=== PATIENT | female | born 1985 | race Caucasian/White ===

== ENCOUNTER 2023-04-27 14:29 | Outpatient (REF) | payer OTHER, SELFPAY ==
[2023-04-27 21:48] LABS: Abs Immature Grans 0.01 10^3/uL (0.0-0.06); Absolute Basophil Count 0.04 10^3/uL (0.0-0.2); Absolute Eosinophil Count 0.25 10^3/uL (0.0-0.7); Absolute Lymphocyte Count 2.28 10^3/uL (1.2-3.4); Absolute Monocyte Count 0.32 10^3/uL (0.1-0.8); Absolute Neutrophil Count 3.92 10^3/uL (1.2-6.7); Basophils % 0.6; Eosinophils % 3.7; HCT 39.2 % (36.0-46.0); Immature Grans % 0.1; Lymphocytes % 33.4; MCH 27.1 pg (27.0-33.0); MCHC 33.2 % (32.0-36.0); MCV 82 fL (80-95); MPV 11.4 fL (8.0-11.0); Monocytes % 4.7; Neutrophils % 57.5; Platelet Count 334 10^3/uL (130-400); RDW 13.3 % (11.7-14.6); RDW-SD 39.6 fL; WBC 6.82 10^3/uL (4.4-10.8)
[2023-04-27 21:58] LABS: Anion Gap 8.2 mmol/L (3-11); BUN 6 mg/dL (7-18); CO2 26.8 mmol/L (21.0-32.0); CREATININE 0.7 mg/dL (0.55-1.02); Calcium 8.8 mg/dL (8.5-10.1); Chloride 103 mmol/L (98-107); Estimated GFR 112.75 (mL/min/1.73m2); Glucose 92 mg/dL (74-106); Potassium 3.7 mmol/L (3.5-5.1); Sodium 138 mmol/L (136-145)
[2023-04-27 22:22] LABS: COMMENT (LAB VIEW ONLY) 50.81 mg/dL; Microalb ug/mg Crea 8.5 ug/mg Cr
== END 2023-04-27 14:30 | disposition home or self-care (01) ==
LOC: LBN 14:29
PROVIDERS: Visit Provider Physician Assistant
DX: I10 Essential (primary) hypertension (principal); H81.11 Benign paroxysmal vertigo, right ear
CPT/HCPCS: 80048; 82043; 82570; 85025

== ENCOUNTER 2023-12-31 01:35 | Outpatient (CLI) | payer OTHER, SELFPAY ==
[2023-12-31 09:28] LABS: Anion Gap 9.5 mmol/L (3-11); BUN 8 mg/dL (7-18); CO2 27.5 mmol/L (21.0-32.0); CREATININE 0.7 mg/dL (0.55-1.02); Calcium 9.3 mg/dL (8.5-10.1); Chloride 103 mmol/L (98-107); Estimated GFR 112.05 (mL/min/1.73m2); Glucose 113 mg/dL (74-106); Potassium 4.1 mmol/L (3.5-5.1); Sodium 140 mmol/L (136-145)
[2023-12-31 19:38] LABS: Hepatitis C Ab w Rflx HCV PCR Negative (Negative)
[2023-12-31 19:40] LABS: HIV-1/2 Ag & Ab Screen Negative (Negative)
== END 2023-12-31 01:36 | disposition home or self-care (01) ==
PROVIDERS: PCP Nurse Practitioner Family; Visit Provider Nurse Practitioner Family
DX: Z13.1 Encounter for screening for diabetes mellitus (principal); Z11.59 Encounter for screening for other viral diseases; Z11.4 Encounter for screening for human immunodeficiency virus [HIV]
CPT/HCPCS: 36415; 80048; 86803; 87389

== ENCOUNTER 2024-07-05 18:22 | Outpatient (REF) | payer OTHER, SELFPAY ==
[2024-07-05 22:57] LABS: ALT 21 U/L (14-59); AST 14 U/L (15-37); Albumin 3.4 g/dL (3.4-5.0); Alkaline Phosphatase 92 U/L (46-116); Anion Gap 8.9 mmol/L (3-11); BUN 8 mg/dL (7-18); Bilirubin, Total 0.28 mg/dL (0.2-1.0); CO2 26.1 mmol/L (21.0-32.0); CREATININE 0.6 mg/dL (0.55-1.02); Calcium 9.1 mg/dL (8.5-10.1); Calculated LDL 169 mg/dL (<100); Chloride 105 mmol/L (98-107); Cholesterol 242 mg/dL (<200); Glucose 92 mg/dL (74-106); HDL Cholesterol 46 mg/dL (40-60); Potassium 3.8 mmol/L (3.5-5.1); Sodium 140 mmol/L (136-145); Total Protein 7.4 g/dL (6.4-8.2); Triglyceride 136 mg/dL (<150)
== END 2024-07-05 18:23 | disposition home or self-care (01) ==
LOC: LBN 18:22
PROVIDERS: PCP Nurse Practitioner Family; Visit Provider Nurse Practitioner Family
DX: Z13.220 Encounter for screening for lipoid disorders (principal)
CPT/HCPCS: 80053; 80061

== ENCOUNTER 2024-07-29 00:38 | Outpatient (CLI) | payer OTHER, SELFPAY ==
--- NOTE | 2024-07-29 07:00 | DI.MAMMO_ITS ---
Exam(s) MAMMO SCREENING EXAM: MAMMO SCREENING CLINICAL HISTORY: screening,Z12.39 TECHNIQUE: Bilateral full field digital CC and MLO mammographic images were obtained with 3D tomosyn thesis and utilizing computer aided detection (CAD). COMPARISON: No exams are available for comparison. FINDINGS: Masses/Architectural Distortion: None seen. Microcalcifications: No suspicious pleomorphic-type are seen. Skin Thickening/Nipple Retraction: None. IMPRESSION: 1. No significant interval change with no specific features of malignancy noted. 2. Unless there is more urgent need, screening mammography is recommended, as per [employer] guidelines. BI-RADS Category 1 - Negative Breast Density - Category A - Almost entirely fatty A negative radiographic report should not delay biopsy if a dominant or clinically suspicious mass is present. Up to ten percent of cancers are not identified on mammography. A negative report may reinforce clinical impression. Adenosis and dense breasts may obscure an underlying neoplasm. False positive reports average 6 to 10%. Patient will receive a letter notifying them of these results.
== END 2024-07-29 00:58 ==
LOC: DI 00:38
PROVIDERS: PCP Nurse Practitioner Family; Visit Provider Nurse Practitioner Family
DX: Z12.31 Encounter for screening mammogram for malignant neoplasm of breast (principal)
CPT/HCPCS: 77063; 77067

== ENCOUNTER 2025-07-13 16:38 | Emergency (ER) | payer OTHER, SELFPAY ==
[2025-07-13] VITALS (20 sets, daily range): BP systolic 125–142; BP diastolic 71–99; PULSE 82–115; RESP 6–20; TEMP 36.8; O2SAT 98–100
--- NOTE | 2025-07-13 16:30 | RT.EKG_ITS ---
APPROVED REPORT Exam: Resting ECG Reason for Exam: passed out Patient Location: E HR:103 bpm ECG Measurements Heart Rate 103 AXIS CO 139 P 18 QRSd 90 QRS 30 QT 345 T 13 QTc 453 Conclusion Sinus tachycardia...rate> [address] segment or T wave abnormalities to suggest occluisve [place]
[2025-07-13 17:27] LABS: Abs Immature Grans 0.02 10^3/uL (0.0-0.06); HCT 39.7 % (36.0-46.0); HGB 12.4 g/dL (11.2-15.7); Immature Grans % 0.2 %; MCH 23.8 pg (27.0-33.0); MCHC 31.2 % (32.0-36.0); MCV 76 fL (80-95); MPV 10.4 fL (8.0-11.0); Platelet Count 336 10^3/uL (130-400); RBC 5.20 10^6/uL (3.93-5.22); RDW 17.1 % (11.7-14.6); RDW-SD 46.5 fL; WBC 9.53 10^3/uL (4.4-10.8)
[2025-07-13] MEDS: Normal Saline 1,000 ML 1000 ML IV ×2 (17:32→19:21)
[2025-07-13 17:41] LABS: INR 1.0 (0.9-1.1); PTT Activated 22.7 sec (20.6-30.2); Prothrombin Time 9.9 sec (9.1-11.1)
[2025-07-13 17:52] LABS: ALT 23 U/L (14-59); AST 19 U/L (15-37); Albumin 3.8 g/dL (3.4-5.0); Alkaline Phosphatase 93 U/L (46-116); Anion Gap 10.6 mmol/L (3-11); BUN 5 mg/dL (7-18); Bilirubin, Total 0.3 mg/dL (0.2-1.0); CO2 25.4 mmol/L (21.0-32.0); Calcium 9.2 mg/dL (8.5-10.1); Chloride 101 mmol/L (98-107); Estimated GFR 82.37 (mL/min/1.73m2); Glucose 115 mg/dL (74-106); Magnesium 1.9 mg/dL (1.8-2.4); Potassium 3.7 mmol/L (3.5-5.1); Sodium 137 mmol/L (136-145); TSH 1.73 uIU/mL (0.36-3.74); Total Protein 8.5 g/dL (6.4-8.2); Troponin I 5 ng/L (<or=51)
[2025-07-13 17:55] LABS: Glucose Negative (Negative)
[2025-07-13 18:01] LABS: HCG Qual (Serum) Negative
[2025-07-13 18:06] LABS: D-Dimer 468 ng/mlFEU (<500)
[2025-07-13 18:12] LABS: C & S Indicated? No; RBC Negative HPF (0-2)
[2025-07-13 18:55] LABS: Troponin I 4 ng/L (<or=51)
--- NOTE | 2025-07-13 19:15 | ED.GENADUL_ITS ---
Discharge Plan Disposition Patient Disposition: Home Condition: Good Discharge Details Clinical Impression: Syncope, Orthostatic dizziness Primary Care Provider: Jace Bryant ED Provider: Lianne Lemon Home Meds and New Rx's Prescriptions: Continued triamcinolone acetonide 0.1 % cream 1 applic topical BID Qty: 80 0RF lisinopril 10 mg tablet See Rx Instructions .ROUTE .COMPLEX Qty: 90 4RF Dose Instruction: TAKE 1 TABLET BY MOUTH DAILY Rx Instructions: TAKE 1 TABLET BY MOUTH DAILY Discontinued Climara Pro 0.045-0.015 mg/24 hr patch weekly 1 patch transdermal QWEEK Qty: 4 12RF CombiPatch 0.05-0.14 mg/24 hr patch semiweekly 1 patch transdermal ONCE Qty: 8 12RF Discharge Instructions Instructions: Fainting, Adult ED Additional Instructions: Call your primary care doctor in the morning to schedule an appointment for within the next 72 hours to followup on your visit today. At that visit please discuss whether to restart your estrogen patch. Return to the emergency department if your symptoms return, or if you develop new or worsening symptoms including lighteheadeness, chest pain, shortness of breath, vomiting, numbness, weakness, headache, or if you have any other concerns. HPI General Date/Time Provider Initiated Documentation: 07/13/25 16:39 . HPI Narrative: 39yo F with hx HTN presenting for syncopal episode. [place] unwell at work today, mild nausea starting in the afternoon. Later in the day at her desk felt very nauseated, sweaty, and lightheaded. Laid her head down on her desk to rest. Subsequently lost consciousness, unsure for how long. No vomiting or abdominal pain. Does have some LLQ 'pressure' (like my bladder is full but that's not where my bladder is) but no pain. Last BM yesterday, normal, non-bloody. Pressure feeling is located where her estrogen patch is. No dysuria or hematuria. No chest pain or shortness of breath at any point. No vertigo, headache, numbness, tingling, weakness. Does feel like 'my thoughts are going faster than my speech can keep up'. No recent falls or head injuries. No fevers, chills, rash, or other concerns. Related Data Home Medications ?Medication ?Instructions ?Recorded ?Confirmed lisinopril 10 mg tablet See Rx Instructions .Route 0 07/07/25 07/13/25 .COMPLEX #90 tabs triamcinolone acetonide 0.1 % 1 applic topical BID #80 grams 07/07/25 07/13/25 topical cream Previous Rx's ?Medication ?Instructions ?Recorded lisinopril 10 mg tablet See Rx Instructions .Route 0 07/07/25 .COMPLEX #90 tabs triamcinolone acetonide 0.1 % 1 applic topical BID #80 grams 07/07/25 topical cream Allergies Allergy/AdvReac Type Severity Reaction Status Date / Time No Known Allergies Allergy Verified 07/13/25 17:45 General Stated Complaint: Dizzy/Sync JANEL: 3 Review of Systems Narrative: see HPI Exam Narrative Exam Narrative: General: Alert, well appearing, well nourished, in no acute distress. Head: Normocephalic, atraumatic Neck: Trachea midline, ?Neck supple. ENT: ?Dry MM.? No oropharygeal lesions or exudate. Cardiac: ?RRR, no murmurs appreciated Resp: No respiratory distress. CTAB. Abd: ?Soft, non-distended, nontender : ?No suprapubic tenderness. No CVA tenderness. Extremities: ?No deformities.? No peripheral edema. Neuro: ? GCS 15.? PERRL.? EOMI.? Somewhat slow speech but fluent speech with no dysarthria. Motor- 5/5 strength symmetric bilateral upper and lower extremities including shoulder abductors/adductors, elbow flexors/extensors, wrist flexors/extensors, finger abductors/adductors, hipflexors/extensors, knee flexors/extensors, ankle dorsiflexors and planter flexors. Sensation- ?Intact to light touch and symmetric multiple dermatomes including upper and lower extremities Coordination- No dysmetria on finger to nose Reflexes- 2/4 achilles & patellar, no clonus Gait/station: ?Normal stance.? No truncal ataxia. Steady gait with equal normal steps CRANIAL NERVES: II: Pupils equal and reactive, III, IV, : EOM intact, no gaze preference or deviation, no nystagmus. V: normal sensation in V1, V2, and V3 segments bilaterally VII: no asymmetry, no nasolabial fold flattening VIII: normal hearing to speech IX, X: normal palatal elevation, no uvular deviation XI: 5/5 head turn and 5/5 shoulder shrug bilaterally XII: midline tongue protrusion Course Vital Signs Vital signs: Vital Signs Temperature 36.8 C 07/13/25 16:39 Pulse 107 H 07/13/25 16:39 Respiratory Rate 18 07/13/25 16:39 Blood Pressure 125/87 07/13/25 16:39 Pulse Oximetry 98 07/13/25 16:39 Temperature 36.8 C 07/13/25 16:39 Temperature Source Oral 07/13/25 16:39 Pulse 85 07/13/25 18:47 Pulse 86 07/13/25 19:00 Respiratory Rate 20 07/13/25 19:00 Respiratory Effort Normal 07/13/25 17:39 Respiratory Depth Normal 07/13/25 18:35 Blood Pressure 134/88 07/13/25 18:47 Blood Pressure Mean 100 07/13/25 18:47 Pulse Oximetry 100 07/13/25 19:00 Oxygen Delivery Method Room Air 07/13/25 18:35 Oxygen Flow Rate 0 07/13/25 18:35 Pain Level 4 07/13/25 16:39 Lab/Test Results Lab/Test Results: Laboratory Tests Range/Units 07/13/25 07/13/25 07/13/25 16:49 17:10 18:18 WBC (4.4-10.8) 10^3/uL 9.53 RBC (3.93-5.22) 10^6/uL 5.20 Hgb (11.2-15.7) g/dL 12.4 Hct (36.0-46.0) % 39.7 MCV (80-95) fL 76 L MCH (27.0-33.0) pg 23.8 L MCHC (32.0-36.0) % 31.2 L RDW (11.7-14.6) % 17.1 H Plt Count (130-400) 10^3/uL 336 MPV (8.0-11.0) fL 10.4 Immature Gran % % 0.2 Neutrophils % % 61.2 Lymphocytes % % 29.7 Monocytes % % 4.6 Eosinophils % % 3.8 Basophils % % 0.5 Nucleated RBC % (0.0-0.3) % 0.0 Absolute Neutrophils (1.2-6.7) 10^3/uL 5.83 Absolute Lymphocytes (1.2-3.4) 10^3/uL 2.83 Absolute Monocytes (0.1-0.8) 10^3/uL 0.44 Absolute Eosinophils (0.0-0.7) 10^3/uL 0.36 Absolute Basophils (0.0-0.2) 10^3/uL 0.05 PT (9.1-11.1) sec 9.9 INR (0.9-1.1) 1.0 APTT (20.6-30.2) sec 22.7 D-Dimer (<500) ng/mlFEU 468 Sodium (136-145) mmol/L 137 Potassium (3.5-5.1) mmol/L 3.7 Chloride (98-107) mmol/L 101 Carbon Dioxide (21.0-32.0) mmol/L 25.4 Anion Gap (3-11) mmol/L 10.6 BUN (7-18) mg/dL 5 L Creatinine (0.55-1.02) mg/dL 0.9 Est GFR (CKD-EPI 2020) (mL/min/1.73m2) 82.37 Glucose (74-106) mg/dL 115 H Calcium (8.5-10.1) mg/dL 9.2 Magnesium (1.8-2.4) mg/dL 1.9 Total Bilirubin (0.2-1.0) mg/dL 0.3 AST (15-37) U/L 19 ALT (14-59) U/L 23 Alkaline Phosphatase (46-116) U/L 93 Troponin I (<or=51) ng/L 5 4 Total Protein (6.4-8.2) g/dL 8.5 H Albumin (3.4-5.0) g/dL 3.8 TSH (0.36-3.74) uIU/mL 1.73 Serum HCG, Qual Negative Urine Color (Yellow) Yellow Urine Clarity (Clear) Clear Urine pH (5-8) 6.5 Ur Specific [place] (1.005-1.025) 1.010 Urine Protein (Neg-Trace) mg/dL Negative Urine Ketones (Negative) mg/dL 80 H Urine Blood (Negative) Negative Urine Nitrite (Negative) Negative Urine Bilirubin (Negative) Negative Urine Urobilinogen (Up to 0.2) mg/dL 0.2 Ur Leukocyte Esterase (Negative) Trace H Urine RBC (0-2) HPF Negative Urine WBC (0-5) HPF 3-5 Ur Epithelial Cells (Negative) HPF Moderate Urine Crystals (Negative) HPF Negative Urine Bacteria (Negative) HPF Few Urine Casts (Negative) LPF Negative Urine Mucus (Negative) Negative Ur Culture Indicated? No Urine Glucose (Negative) mg/dL Negative Medical Decision Making 39yo F with hx HTN presenting for syncopal episode. [place] unwell today, then nauseated/sweaty/lightheaded, lost consciousness after placing her head down on her desk. No chest pain or shortness of breath at any point. Slightly tachcyardiac on arrival, vital signs otherwise reassuring. Reassuring physical exam with no abdominal tenderness, clear lungs, no focal neurologic deficits. Would not get CT or US imaging at this time. Does have dry MMM. Will give IVFB while awaiting results of workup. Not consistent with CVA or ICH. Not overtly septic. Broad differential; of note did start estrogen patch recently. -EKG sinus tachycardia, appropriate intervals, no ST segment or T wave abnormalities to suggest occlusive [place]. -Labs reviewed as below, CBC reassuring with no leukocytosis or anemia, CMP with no actionable abnormalities and no hypoglycemia, TSH normal, negative, coags normal, initial troponin 5 with one hour repeat of 4 (would not further pursue ACS), dimer normal (would not further pursue pulmonary embolism with chest CT). UA not infected, does have + ketones. -Orthostatics not obtained until after completion or 1L IVFB; at that time did have increase in HR consistent with orthostasis (though BP remained adequate) and was symptomatic with standing. On reassessment she reports feeling much better after IVF but still not back to normal. She reports that she has been trying to decrease her caloric intake recently; question whether this may have contributed to her symptoms today. Physical exam remains reassuring. Will give additional 1L IVFB and reassess. Repeat orthostatics improved. Ambulates steadily independently without symptoms. On reassessment patient reports feeling much better, back to normal. Partner at beside concurs. [place] and [place] syncope scores low risk. Appropriate for outpatient followup with her PCP. She removed her estrogen patch prior to arrival as she was concerned it may have precipitated her symptoms today; I advised her to discuss with with her PCP before restarting. Discharged home; discharge instructions and return precautions were reviewed with patient who verbalized understanding. All questions were answered and she is in full agreement with the plan. Lab Data Lab results reviewed: Yes I reviewed the patient's lab results. Labs: Laboratory Tests Range/Units 07/13/25 07/13/25 07/13/25 16:49 17:10 18:18 WBC (4.4-10.8) 10^3/uL 9.53 RBC (3.93-5.22) 10^6/uL 5.20 Hgb (11.2-15.7) g/dL 12.4 Hct (36.0-46.0) % 39.7 MCV (80-95) fL 76 L MCH (27.0-33.0) pg 23.8 L MCHC (32.0-36.0) % 31.2 L RDW (11.7-14.6) % 17.1 H Plt Count (130-400) 10^3/uL 336 MPV (8.0-11.0) fL 10.4 Immature Gran % % 0.2 Neutrophils % % 61.2 Lymphocytes % % 29.7 Monocytes % % 4.6 Eosinophils % % 3.8 Basophils % % 0.5 Nucleated RBC % (0.0-0.3) % 0.0 Absolute Neutrophils (1.2-6.7) 10^3/uL 5.83 Absolute Lymphocytes (1.2-3.4) 10^3/uL 2.83 Absolute Monocytes (0.1-0.8) 10^3/uL 0.44 Absolute Eosinophils (0.0-0.7) 10^3/uL 0.36 Absolute Basophils (0.0-0.2) 10^3/uL 0.05 PT (9.1-11.1) sec 9.9 INR (0.9-1.1) 1.0 APTT (20.6-30.2) sec 22.7 D-Dimer (<500) ng/mlFEU 468 Sodium (136-145) mmol/L 137 Potassium (3.5-5.1) mmol/L 3.7 Chloride (98-107) mmol/L 101 Carbon Dioxide (21.0-32.0) mmol/L 25.4 Anion Gap (3-11) mmol/L 10.6 BUN (7-18) mg/dL 5 L Creatinine (0.55-1.02) mg/dL 0.9 Est GFR (CKD-EPI 2020) (mL/min/1.73m2) 82.37 Glucose (74-106) mg/dL 115 H Calcium (8.5-10.1) mg/dL 9.2 Magnesium (1.8-2.4) mg/dL 1.9 Total Bilirubin (0.2-1.0) mg/dL 0.3 AST (15-37) U/L 19 ALT (14-59) U/L 23 Alkaline Phosphatase (46-116) U/L 93 Troponin I (<or=51) ng/L 5 4 Total Protein (6.4-8.2) g/dL 8.5 H Albumin (3.4-5.0) g/dL 3.8 TSH (0.36-3.74) uIU/mL 1.73 Serum HCG, Qual Negative Urine Color (Yellow) Yellow Urine Clarity (Clear) Clear Urine pH (5-8) 6.5 Ur Specific [place] (1.005-1.025) 1.010 Urine Protein (Neg-Trace) mg/dL Negative Urine Ketones (Negative) mg/dL 80 H Urine Blood (Negative) Negative Urine Nitrite (Negative) Negative Urine Bilirubin (Negative) Negative Urine Urobilinogen (Up to 0.2) mg/dL 0.2 Ur Leukocyte Esterase (Negative) Trace H Urine RBC (0-2) HPF Negative Urine WBC (0-5) HPF 3-5 Ur Epithelial Cells (Negative) HPF Moderate Urine Crystals (Negative) HPF Negative Urine Bacteria (Negative) HPF Few Urine Casts (Negative) LPF Negative Urine Mucus (Negative) Negative Ur Culture Indicated? No Urine Glucose (Negative) mg/dL Negative Quality:SDOH Health Related Social Needs: Health related social needs lonely/isolated PFSH All Active Problems (Updated 07/13/25 @ 21:05 by Lianne Lemon MD) Orthostatic dizziness (Acute) Syncope (Chronic) Prediabetes (Acute) Hypertension (Chronic) Depression (Chronic) Medical History Lump of right breast mammo & Rt breast US 01/29/22- Cat 2 Preeclampsia Gestational diabetes Surgical History Hx of tubal ligation 2019 Hx of section 2019 Hx of appendectomy 2001 Family History Mother Diabetes Hypertension Obesity Father Hyperlipidemia Hypertension Obesity Maternal Grandmother Heart disease Cancer Paternal Grandmother Heart disease Maternal Grandfather Hypertension Paternal Grandfather Hyperlipidemia Diabetes Social History Smoking/Tobacco Use Status: Never Smoking risk assessment performed?: Yes Alcohol Intake: never Drug use: Never Caregiver/Support person: No Household members: spouse and children Housing: house Pets and animals: No Sexually active: Yes Do you think of yourself as: bisexual Current gender identity: female What is your relationship status?: How often do you talk on the phone with friends or family?: twice per week How often do you get together with friends or relatives?: three or more times per week How often do you attend jain or synagogue services?: decline to answer Do you belong to any clubs or organized social groups?: yes Panel score (0-1 are the most socially isolated patients): 3 What type of physical activity do you participate in: walking Duration: 15-30 minutes/day Frequency: 5-6 times per week Lainey/Pentecostalism: No preference Seatbelt use: always Helmet use: Yes Drive intox or ride w/intox drivers' cash clerk: No
== END 2025-07-13 21:39 | disposition home or self-care (01) ==
PROVIDERS: Emergency Provider Student in an Organized Health Care Education/Training Program; PCP Nurse Practitioner Family
DX: R55 Syncope and collapse (principal); R42 Dizziness and giddiness
CPT/HCPCS: 36415; 80053; 81025; 93005; 96360; 96361; 99284; 81003; 81015; 83735; 84443; 84484; 84703; 85025; 85379; 85610; 85730; 93010

== ENCOUNTER 2025-10-03 03:10 | Outpatient (CLI) | payer OTHER, SELFPAY ==
[2025-10-03 16:48] LABS: Hemoglobin A1C 5.8 % (<5.7)
== END 2025-10-03 03:11 | disposition home or self-care (01) ==
LOC: LBO 03:11
PROVIDERS: PCP Nurse Practitioner Family; Visit Provider Nurse Practitioner Family
DX: R73.03 Prediabetes (principal)
CPT/HCPCS: 36415; 83036

== ENCOUNTER 2025-10-09 13:51 | Outpatient (REF) | payer OTHER, SELFPAY ==
[2025-10-09 22:01] LABS: HCT 40.2 % (36.0-46.0); HGB 12.4 g/dL (11.2-15.7); MCH 24.1 pg (27.0-33.0); MCHC 30.8 % (32.0-36.0); MCV 78 fL (80-95); MPV 11.3 fL (8.0-11.0); Platelet Count 350 10^3/uL (130-400); RBC 5.14 10^6/uL (3.93-5.22); RDW 14.6 % (11.7-14.6); RDW-SD 41.6 fL; WBC 6.63 10^3/uL (4.4-10.8)
[2025-10-09 22:24] LABS: Ferritin 11 ng/mL (7-271)
[2025-10-09 22:25] LABS: Iron 33 ug/dL (50-170); Total Iron Binding Capacity 425 ug/dL (250-425)
== END 2025-10-09 13:52 | disposition home or self-care (01) ==
LOC: LBN 13:51
PROVIDERS: PCP Nurse Practitioner Family; Visit Provider Nurse Practitioner Family
DX: N92.0 Excessive and frequent menstruation with regular cycle (principal)
CPT/HCPCS: 85027; 82728; 83540; 83550